=== PATIENT | female | born 1955 | race Asian ===

== ENCOUNTER 2020-09-12 18:00 | Emergency (ER) | payer MEDICARE, OTHER ==
[~2020-09-12] VITALS: Ht 154.9 cm; Wt 63.6 kg
[~2020-09-12 18:00] MED LIST: ALBU8.5H8 IH; ATEN-188 PO; BECL8.7A6 IH; FERR-89 PO; FOLI-130 PO; FURO40 PO; GLIP5TAB11 PO; INSLAN SQ; LOVA20TA73 PO; OMEP20 PO; POTA-189 PO; PYRI50TA13 PO; SERT50TA12 PO
[2020-09-12 21:05] LABS: GLUCOSE,POINT OF CARE 202 MG/DL (70-110)
[2020-09-12 21:45] LABS: BASOPHILS % (AUTO) 1.4 % (0.0-2.0); EOSINOPHILS % (AUTO) 1.5 % (1.0-6.0); HEMATOCRIT 37.6 % (36-46); HEMOGLOBIN 12.1 g/dL (12.0-16.0); LYMPHOCYTES # (AUTO) 1.8 K/uL (1.0-4.8); LYMPHOCYTES % (AUTO) 28.2 % (22.0-44.0); MEAN CORPUSCULAR HEMOGLOBIN 27.5 pg (26.0-34.0); MEAN CORPUSCULAR HGB CONC 32.2 G/dL (31.0-37.0); MEAN CORPUSCULAR VOLUME 85 fL (80-100); MONOCYTES # (AUTO) 0.4 K/uL (0.1-1.0); NEUTROPHILS # (AUTO) 3.9 K/uL (1.8-7.7); NEUTROPHILS % (AUTO) 61.9 % (40.0-70.0); PLATELET COUNT (AUTO) 255 K/uL (150-450); RED BLOOD CELL COUNT(AUTO) 4.41 MIL/uL (4.00-5.20); RED CELL DISTRIBUTION WIDTH 13.5 % (11.5-14.5)
[2020-09-12 21:56] LABS: ANION GAP 10 mmol/L (8-16); CALCIUM, TOTAL 9.1 mg/dL (8.8-10.5); CARBON DIOXIDE 27 mmol/L (22-29); CHLORIDE 100 mmol/L (98-107); CREATININE 0.93 mg/dL (0.60-1.30); GLOMERULAR FILTR. RATE CALC > 60 mL/min (>60); GLUCOSE,RANDOM 203 mg/dL (70-110); POTASSIUM 3.2 mmol/L (3.5-5.1); SODIUM SERUM 137 mmol/L (136-145); UREA NITROGEN, BLOOD 14 mg/dL (7-18)
[2020-09-12 22:12] VITALS: BP 173/80
== END 2020-09-12 22:13 | disposition home or self-care (01) ==
LOC: EMS 18:00
DX: R60.0 Localized edema (principal); R06.09 Other forms of dyspnea; R05 Cough; E11.9 Type 2 diabetes mellitus without complications; I10 Essential (primary) hypertension; F32.9 Major depressive disorder, single episode, unspecified; Z79.899 Other long term (current) drug therapy
CPT/HCPCS: 82948; 36415-L1; 36415-TC; 71045-TC